=== PATIENT | female | born 1970 | race Caucasian/White ===

== ENCOUNTER 2016-12-03 17:35 | Emergency (ER) | payer OTHER ==
[~2016-12-03] VITALS: Ht 170.2 cm; Wt 134.9 kg
[~2016-12-03 17:35] MED LIST: AMLODIPINE BESYL5 MG PO; CLEOCIN300 MG PO; DECADRON4 MG PO; ENDOCET 5-3251 EACH PO; FLEXERIL10 MG PO; HYDROCHLOROTHIA25 MG PO; IBUPROFEN800 MG PO; IRON325 MG PO; LOSARTAN-HCTZ1 EAC1 PO; MAGNESIUM OXID400 MG PO; MOTRIN800 MG PO; PERCOCET 5/31 TABLET PO; PREDNISONE10 MG PO; TRAMADOL HCL50 MG PO; ULTRAM50 MG PO; VALIUM5 MG PO; VITAMIN B-122500 MCG SL; VITAMIN B-125000 MC1 PO
[2016-12-03 18:29] LABS: HEMATOCRIT 34.3 % (36.0-46.0); MCV 66.5 FL (83-99); MEAN PLAT.VOLUME 9.1 uM^3 (9.5-12.4); PLATELET COUNT 362 K/uL (156-360); RBC DIS.WIDTH-CV 19.5 % (11.8-14.6); RBC DIS.WIDTH-SD 45.5 % (39-53); RED BLOOD COUNT 5.16 M/uL (3.80-5.20); WHITE BLOOD COUNT 9.7 K/uL (4.1-10.2)
[2016-12-03 18:52] LABS: CHLORIDE 107 mEq/L (99-109); SODIUM 141 mEq/L (136-147)
[2016-12-03 18:54] LABS: GLUCOSE 97 mg/dL (70-99)
[2016-12-03 18:55] LABS: ANION GAP 9 MEQ/L (2-14)
[2016-12-03 18:58] LABS: GFR ESTIMATE (CALCULATED) > 59 mL/min/
[2016-12-03 18:59] LABS: UREA NITROGEN (BUN) 13 mg/dL (9-23)
[2016-12-03 19:07] LABS: QUANTITATIVE HCG < 4.0 MIU/ML
[2016-12-03 19:38] LABS: ADD MIUA? YES; BILIRUBIN NEGATIVE; BLOOD LARGE; COLOR BLOODY ((YELLOW)); GLUCOSE (STRIP) NEGATIVE; KETONES NEGATIVE; LEUKOCYTES SMALL; NITRITE NEGATIVE; PH, URINE 7.5 (5-8); PROTEIN (STRIP) 30; SPECIFIC GRAVITY 1.011 (1.000-1.030); UROBILINOGEN 0.2 MG/DL (0.2-1.0)
[2016-12-03 20:10] LABS: RED BLOOD CELLS TNTC /HPF (0-5)
[2016-12-03 20:11] LABS: UCUL ADDED? YES
[2016-12-03 21:19] VITALS: BP 172/88
== END 2016-12-03 21:20 | disposition home or self-care (01) ==
LOC: EME 17:35
PROVIDERS: Physician Assistant
DX: N93.9 Abnormal uterine and vaginal bleeding, unspecified (principal); R31.9 Hematuria, unspecified; D25.9 Leiomyoma of uterus, unspecified; R41.0 Disorientation, unspecified; R10.30 Lower abdominal pain, unspecified; F17.200 Nicotine dependence, unspecified, uncomplicated
CPT/HCPCS: 76856; 80048; 81003; 84702; 85027; 87077; 87086; 87186; 99281; 99285

== ENCOUNTER 2017-12-09 10:23 | Emergency (ER) | payer SELFPAY ==
[~2017-12-09] VITALS: Ht 170.2 cm; Wt 127.6 kg
[2017-12-09] MEDS ORDERED: FLEXERIL10 MG PO (12:07)
[2017-12-09] MEDS ORDERED: NORCO 5/3251 TABLET PO (12:07)
[2017-12-09 12:35] VITALS: BP 176/96
== END 2017-12-09 12:36 | disposition home or self-care (01) ==
LOC: EME 10:23
DX: M25.511 Pain in right shoulder (principal); M62.838 Other muscle spasm; I10 Essential (primary) hypertension; Z90.49 Acquired absence of other specified parts of digestive tract; F17.200 Nicotine dependence, unspecified, uncomplicated
CPT/HCPCS: 73030; 99281; 99285; J2270

== ENCOUNTER 2018-02-27 07:43 | Emergency (ER) | payer OTHER ==
[~2018-02-27] VITALS: Ht 170.2 cm; Wt 130.4 kg
[~2018-02-27 07:43] MED LIST changes: +NORCO 5/3251 TABLET PO
[2018-02-27 09:44] LABS: CHLORIDE 106 mEq/L (99-109); POTASSIUM 4.1 mEq/L (3.7-5.4); SODIUM 140 mEq/L (136-147)
[2018-02-27 09:45] LABS: GLUCOSE 87 mg/dL (70-99)
[2018-02-27 09:49] LABS: CREATININE 0.8 mg/dL (0.6-1.3); GFR ESTIMATE (CALCULATED) > 59 mL/min/
[2018-02-27 09:50] LABS: UREA NITROGEN (BUN) 10 mg/dL (9-23)
[2018-02-27 09:53] LABS: HEMATOCRIT 33.6 % (36.0-46.0); HEMOGLOBIN 10.3 G/DL (11.9-15.5); MCH 22.1 PG (29.0-34.0); MCHC 30.7 G/DL (30.0-36.0); MCV 71.9 FL (83-99); PLATELET COUNT 351 K/uL (156-360); RBC DIS.WIDTH-SD 45.9 % (39-53); RED BLOOD COUNT 4.67 M/uL (3.80-5.20); WHITE BLOOD COUNT 10.7 K/uL (4.1-10.2)
[2018-02-27] MEDS ORDERED: BACTRIM,SEPT1 TABLET PO (13:15)
[2018-02-27] MEDS ORDERED: KEFLEX500 MG PO (13:15)
[2018-02-27 14:30] VITALS: BP 147/65
== END 2018-02-27 15:03 | disposition home or self-care (01) ==
LOC: EME 07:43
PROVIDERS: Physician Assistant
DX: L03.115 Cellulitis of right lower limb (principal); I10 Essential (primary) hypertension; Z90.49 Acquired absence of other specified parts of digestive tract; F17.200 Nicotine dependence, unspecified, uncomplicated
CPT/HCPCS: 73701; 76937; 80048; 85027; 99281; 99284; C1753; J0696; J3010; J7030